=== PATIENT | male | born 1975 | race Caucasian/White ===

== ENCOUNTER 2021-11-12 02:46 | Emergency (ER) | payer OTHER ==
[~2021-11-12] VITALS: Ht 175.3 cm; Wt 74.8 kg
--- NOTE | 2021-11-12 02:52 | NUR ---
CARMELA FOUND ON STREET TO ER BED 4. INTOXICATED BUT ARROUSABLE AND ABLE TO ANSWER QUESTIONS APPROPRIATELY. NOT IN RESP DISTRESS. BROUGHT IN FOR R FOREHEAD ABRASSION S/P FALL AND ALCOHOL INTOXICATION. PT DENIES KO. NO BLOOD THINNER USE. TETANUS UP TO DATE PER PT. AWAITING MD FOR EVAL
[2021-11-12] MEDS ORDERED: TDAP [DIPH/PERTUSSIS/TET] 0.5 ML VIAL IM ONE ×2 (03:30→03:47)
--- NOTE | 2021-11-12 03:30 | NUR ---
aware pt refused blood draw and refused to provide urine sample
--- NOTE | 2021-11-12 04:08 | NUR ---
labs collected and sent to lab
[2021-11-12 04:15] LABS: BASOPHILS % (AUTO) 0.4 % (0.0-2.0); EOSINOPHILS % (AUTO) 1.2 % (0.0-6.0); HEMATOCRIT 49 % (39-51); HEMOGLOBIN 16.6 g/dL (13.5-17.5); LYMPHOCYTES # (AUTO) 2.2 K/uL (0.8-4.8); MEAN CORPUSCULAR HGB CONC 34 g/dl (31.0-36.0); MEAN CORPUSCULAR VOLUME 95 fL (80-96); MONOCYTES # (AUTO) 0.4 K/uL (0.1-1.30); MONOCYTES % (AUTO) 6.1 % (2.0-12.0); NEUTROPHILS # (AUTO) 3.6 K/uL (1.8-8.9); NEUTROPHILS % (AUTO) 57.3 % (43.0-81.0); PLATELET COUNT (AUTO) 242 K/uL (150-450); RED BLOOD CELL COUNT(AUTO) 5.14 MIL/uL (4.5-6.0); WHITE BLOOD COUNT (AUTO) 6.4 K/uL (4.3-11.0)
[2021-11-12 04:33] LABS: ALBUMIN 3.9 g/dL (3.4-5.0); BILIRUBIN,DIRECT 0.1 mg/dL (0.0-0.2); BILIRUBIN,TOTAL 0.2 mg/dL (0.2-1.0); CALCIUM, SERUM 8.3 mg/dL (8.5-10.1); CREATININE 0.7 mg/dL (0.6-1.3); POTASSIUM 3.5 mmol/L (3.5-5.1); TOTAL PROTEIN, SERUM 7.9 g/dL (6.4-8.2)
--- NOTE | 2021-11-12 06:03 | NUR ---
PT IN BED CURRENTLY ASLEEP V/S STABLE
--- NOTE | 2021-11-12 07:43 | NUR ---
REPORT GIVEN TO PAUL WOODSON FOR WILIAM
--- NOTE | 2021-11-12 10:10 | NUR ---
Patient discharged to home in stable condition. Written and verbal after care instructions given. Patient verbalizes understanding of instruction.
[2021-11-12 10:17] VITALS: BP 114/67
== END 2021-11-12 10:18 | disposition home or self-care (01) ==
LOC: ER 02:54
DX: S00.81XA Abrasion of other part of head, initial encounter (principal); F10.129 Alcohol abuse with intoxication, unspecified; W01.0XXA Fall on same level from slipping, tripping and stumbling without subsequent striking against object, initial encounter; Y93.89 Activity, other specified; Y92.89 Other specified places as the place of occurrence of the external cause; Y99.8 Other external cause status; Y90.8 Blood alcohol level of 240 mg/100 ml or more
CPT/HCPCS: 36415; 70450-TC; 80048-TC; 80076-TC; 85025-TC; 90715; G0480